=== PATIENT | female | born 1955 | race Caucasian/White ===

== ENCOUNTER → 2016-10-30 | Outpatient (CLI) | payer OTHER ==
[~2016-10-30] VITALS: Ht 154.9 cm; Wt 74.0 kg
[~2016-10-30] MED LIST: CYCLOBENZAPRINE5 MG PO; NEURONTIN 300300 M1 PO; TRAMADOL 50 MG50 MG PO
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
[2016-10-30 09:47] VITALS: BP 155/86
== END ==
LOC: PAIN 06:46
DX: M54.16 Radiculopathy, lumbar region (principal); M13.861 Other specified arthritis, right knee

== ENCOUNTER → 2016-11-13 | Outpatient (CLI) | payer OTHER ==
[~2016-11-13] VITALS: Ht 175.3 cm; Wt 74.8 kg
--- NOTE | ~2016-11-13 | HPC ---
[facility] [place] [address] PAIN MANAGEMENT CONSULTATION Name: ARRON FIGUEROA Room #: [facility].#: [id number] Admission: 11/13/16 Attend Phys: Janine Andrews MD Discharge: Date of : 57 Report #: [id number] THIS REPORT FOR: //name// CC: Gregorio Andrews DATE OF SERVICE: 11/13/2016 FOLLOWUP COMPLAINT: The pain improved and is less painful after the last injection. The patient's interview was conducted via use of an galvanizing pot runner. FOLLOWUP HISTORY: The patient is a 61-year-old female who has been seen in the pain clinic because of lumbar radiculopathy. She has been having pain and discomfort, which radiated down into the posterior portion of her left buttocks. She notes that the pain has improved quite a bit. She is still having some discomfort. She would like to return to work. She works at [email or web address]. She stocks the shelves. She would like to return to work as soon as possible. She has had no problem with her injection. There was no problem with bowel or bladder dysfunction. PHYSICAL EXAMINATION: Blood pressure 127/74, pulse 61, respiratory rate 16, room air saturation 96%. The patient has pain and discomfort in the lower back with some pain radiating down to the left leg involving her foot. She has noted improvement in this pain and discomfort since the last injection and rates her pain as improved. She still notes some burning, aching and sharp pain with tingling sensation down into her foot. She also has some pain that radiates down into the buttocks area. IMPRESSION: Improved lumbar radicular pain in the L4-L5 distribution. RECOMMENDATIONS: We discussed again the risks and benefits of the procedure. The patient elects to proceed. PROCEDURE NOTE: The patient was placed in the prone position. Fluoroscopy was used to identify the L4-L5 interspace. This area had been sterilely prepped with Betadine and infiltrated with 0.25% bupivacaine. A total of 80 mg Depo-Medrol, 40 mg triamcinolone and 2 mL of 0.25% bupivacaine was injected. The patient tolerated the procedure well. There were no complications. She will follow up in the future as needed. She will call us if she has any concerns. By: [id number] Janine Andrews MD /brian
[2016-11-13 08:41] VITALS: BP 127/74
== END | disposition home or self-care (01) ==
LOC: PAIN 06:45
DX: M54.16 Radiculopathy, lumbar region (principal)